=== PATIENT | female | born 1955 | race Caucasian/White ===

== ENCOUNTER 2025-06-10 07:34 | Emergency (ER) | payer OTHER, SELFPAY ==
--- NOTE | ~2025-06-10 | XR_ITS ---
EXAMINATION: XR chest 1V portable 06/10/2025 08:20 INDICATION: Chest palpitations PROCEDURE: AP portable chest COMPARISON: No prior studies for comparison. FINDINGS: The lungs are clear. The cardiomediastinal silhouette is within normal limits. There are no pleural effusions. There is no pneumothorax suspected. IMPRESSION: 1: NO ACUTE CARDIOPULMONARY DISEASE. Reviewed, dictated and finalized at location O.
[2025-06-10 07:43] VITALS: BP 148/68; PULSE 88; RESP 20; TEMP 36.7; O2SAT 97
[2025-06-10 07:58] VITALS: BP 156/82; PULSE 79; RESP 14; O2SAT 98
--- NOTE | 2025-06-10 07:59 | ED_ITS ---
HPI - General Adult General Chief complaint: Anxiety Stated complaint: panic attack, stress Time Seen by Provider: 06/10/25 07:40 History of Present Illness HPI narrative: 69-year-old female presenting to the emergency department for evaluation for increased anxiety. Patient states he does have some history of anxiety but feels that has been worse over the last few days. Patient does have a pending tripped that will take approximately 2 weeks. Patient states this has been causing her to have increased stress. Patient states that yesterday she did take a family members anxiety pill, patient is unsure what the pill actually was, and patient states that she did feel improved for a period afterwards. Patient reports last night she had worsening sleep and this morning she had sensation of heart palpitations hyperventilation and numbness to fingers. Patient states this has since resolved. Patient does appear anxious appearing but is in no distress at time of evaluation. Patient does have history of type 2 diabetes. Related Data Allergies Allergy/AdvReac Type Severity Reaction Status Date / Time amoxicillin (From Amoxil) Allergy Hives Verified 06/10/25 07:43 Review of Systems 2 Review of Systems: All systems reviewed & are unremarkable except as noted in HPI and below Exam 2 Narrative: APPEARANCE: Well appearing, no pain, no distress, well-nourished. HEAD: normocephalic, atraumatic. EYES: PERRLA/EOMI, conjunctivae clear. NOSE: Normal no drainage EARS:TMS clear with good light reflex. THROAT: Pharynx clear, no exudate. NECK: Supple. No adenopathy, no masses. RESPIRATORY: Airway patent, respirations nonlabored. Clear to auscultation bilaterally, no rales, rhonchi, wheezing. CARDIOVASCULAR: Regular rate and rhythm without murmurs rubs or gallops. ABDOMINAL: Soft, nontender, nondistended, normal bowel sounds MUSCULOSKELETAL: Moves all extremities. Strength/ROM intact, No edema, No calf tenderness. NEURO: Alert. Cranial nerves II through XII intact. Good gait. Good coordination SKIN: Warm, dry. Normal Color Course Vital Signs Vital signs: Vital Signs Temperature 98.1 F 06/10/25 07:43 Pulse Rate 88 06/10/25 07:43 Respiratory Rate 20 06/10/25 07:43 Blood Pressure 148/68 H 06/10/25 07:43 Pulse Oximetry 97 06/10/25 07:43 Oxygen Delivery Room Air 06/10/25 07:43 Temperature 98.1 F 06/10/25 07:43 Pulse Rate 84 06/10/25 09:33 Respiratory Rate 15 06/10/25 09:33 Blood Pressure 147/75 H 06/10/25 09:33 Pulse Oximetry 100 06/10/25 09:33 Oxygen Delivery Room Air 06/10/25 07:43 Medical Decision Making MDM Narrative Medical decision making narrative: 69-year-old female presenting to the emergency department for evaluation for anxiety. Patient is currently afebrile with no leukocytosis hemoglobin 12.9. Patient has INR 1.1. Patient has no acute abnormalities other CMP. Chest x-ray shows no acute cardiopulmonary abnormality. EKG shows normal sinus rhythm. Patient was treated with 1 mg of p.o. Ativan and patient does feel significantly improved. Patient will be provided a short course of Ativan for her vacation and patient will have close follow-up with primary care physician when she returns. Differential Diagnosis Differential Diagnosis: Anxiety, electrolyte abnormality, TIA, CVA Vital Signs Vital Signs: Vital Signs Temperature 98.1 F 06/10/25 07:43 Pulse Rate 88 06/10/25 07:43 Respiratory Rate 20 06/10/25 07:43 Blood Pressure 148/68 H 06/10/25 07:43 Pulse Oximetry 97 06/10/25 07:43 Oxygen Delivery Room Air 06/10/25 07:43 Temperature 98.1 F 06/10/25 07:43 Pulse Rate 84 06/10/25 09:33 Respiratory Rate 15 06/10/25 09:33 Blood Pressure 147/75 H 06/10/25 09:33 Pulse Oximetry 100 06/10/25 09:33 Oxygen Delivery Room Air 06/10/25 07:43 Lab Data Lab results reviewed: Yes I reviewed the patient's lab results. 06/10/25 08:10 06/10/25 08:10 Labs: Lab Results 06/10/25 Range/Units 08:10 WBC 4.9 (4.5-10.0) K/mm3 RBC 4.37 (4.2-5.4) M/mm3 Hgb 12.9 (12.0-15.0) g/dL Hct 37.0 (37.0-47.0) % MCV 84.7 (80-100) fl MCH 29.5 (26-34) pg MCHC 34.9 (32-36) g/dl RDW 12.4 (11.5-14.5) % Plt Count 167 (150-375) k/mm3 MPV 9.6 (7.4-10.4) fl Immature Gran % (Auto) 0.4 (0-0.5) % Neut % (Auto) 63.0 (45.5-73.1) % Lymph % (Auto) 28.2 (18.3-44.2) % Hickman % (Auto) 6.6 (2.6-8.5) % Eos % (Auto) 1.0 (0-4.4) % Baso % (Auto) 0.8 (0.2-1.2) % Lymph # (Auto) 1.37 (0.9-3.2) K/mm3 Hickman # (Auto) 0.3 (0.1-0.6) K/mm3 Eos # (Auto) 0.1 (0-0.3) K/mm3 Baso # (Auto) 0.0 (0.0-0.1) K/mm3 Abs Immat Gran (auto) 0.02 (0.00-0.031) K/mm3 Absolute Neuts (auto) 3.1 (1.3-6.7) K/mm3 Absolute Nucleated RBC 0.000 (0.0-0.012) K/mm3 Nucleated RBC % 0.0 (0.0-0.2) % PT 14.6 (11.1-14.7) Seconds INR 1.1 APTT 24.9 (22.3-36.8) Seconds Sodium 136 L (137-145) mmol/L Potassium 3.8 (3.4-5.0) mmol/L Chloride 105 (98-107) mmol/L Carbon Dioxide 23 (22-30) mmol/L Anion Gap 8 (4-12) mmol/L BUN 14 (7-17) mg/dL Creatinine 0.61 L (0.7-1.0) mg/dL Estim Creat Clear Calc 67 ml/min Estimated GFR > 60 (59 - ) Glucose 188 H (65-110) mg/dL Calcium 9.0 (8.4-10.2) mg/dL Magnesium 1.9 (1.6-2.3) mg/dL Total Bilirubin 1.7 H (0.2-1.3) mg/dL AST 28 (14-36) U/L ALT 20 (6-35) U/L Alkaline Phosphatase 72 (38-126) U/L Total Protein 7.1 (6.3-8.2) g/dL Albumin 4.4 (3.5-5.1) g/dL TSH (Reflex) 2.330 (0.465-4.68) uIU/mL Imaging Data Radiologist's impression: Impressions Chest X-Ray 06/10/25 08:20 IMPRESSION: 1: NO ACUTE CARDIOPULMONARY DISEASE. Discharge Plan Discharge Clinical Impression: Acute anxiety Patient Disposition: Home Condition: Stable Instructions: Antibiotic Form, Anxiety (ED) Additional Instructions: Ativan as needed for anxiety control as needed. Have close follow-up with your primary care physician. Patient Language: Qatari Prescriptions: New lorazepam [Ativan] 1 mg tablet 1 mg PO BID PRN (Reason: anxiety) Qty: 14 0RF Follow-up/Referrals: PHYSICIAN NOT ON STAFF,NONSTAFF [Primary Care Provider]
[2025-06-10] MEDS: LORazepam (*CRX) 1 MG TABLET PO (08:13)
[2025-06-10] MEDS: LACTATED RINGERS 1,000 ML 999 ML IV CONT (08:13)
[2025-06-10 08:17] LABS: Hematocrit 37.0 % (37.0-47.0); Hemoglobin 12.9 g/dL (12.0-15.0); Immature Granulocyte Percent A 0.4 % (0-0.5); Lymphocytes Absolute Auto 1.37 K/mm3 (0.9-3.2); Mean Corpuscular HGB Conc 34.9 g/dl (32-36); Mean Corpuscular Hemoglobin 29.5 pg (26-34); Mean Corpuscular Volume 84.7 fl (80-100); Nucleated Red Blood Cells Absolute Auto 0.000 K/mm3 (0.0-0.012); Nucleated Red Blood Cells Perc 0.0 % (0.0-0.2); Platelet Count Result 167 k/mm3 (150-375); Red Blood Count 4.37 M/mm3 (4.2-5.4); White Blood Count 4.9 K/mm3 (4.5-10.0)
[2025-06-10 08:30] LABS: Alanine Aminotransferase 20 U/L (6-35); Albumin Level 4.4 g/dL (3.5-5.1); Alkaline Phosphatase 72 U/L (38-126); Anion Gap 8 mmol/L (4-12); Aspartate Amino Transferase 28 U/L (14-36); Bilirubin,Total 1.7 mg/dL (0.2-1.3); Blood Urea Nitrogen 14 mg/dL (7-17); Calcium 9.0 mg/dL (8.4-10.2); Carbon Dioxide 23 mmol/L (22-30); Chloride 105 mmol/L (98-107); Estimated CRCL calculation 67 ml/min; Estimated Glomerular Filt Rate > 60; Glucose 188 mg/dL (65-110); Magnesium 1.9 mg/dL (1.6-2.3); Potassium 3.8 mmol/L (3.4-5.0); Sodium 136 mmol/L (137-145); Total Protein 7.1 g/dL (6.3-8.2)
[2025-06-10 08:33] LABS: INR 1.1; Prothrombin Time 14.6 Seconds (11.1-14.7)
[2025-06-10 08:34] LABS: Partial Thromboplastin Time 24.9 Seconds (22.3-36.8)
[2025-06-10 09:33] VITALS: BP 147/75; PULSE 84; RESP 15; O2SAT 100
[2025-06-10 10:12] LABS: Thyroid Stimulating Hormone Reflex 2.330 uIU/mL (0.465-4.68)
== END 2025-06-10 09:34 | disposition home or self-care (01) ==
PROVIDERS: Emergency Provider Emergency Medicine
DX: F41.9 Anxiety disorder, unspecified (principal); E11.9 Type 2 diabetes mellitus without complications
CPT/HCPCS: 36415; 71045; 80053; 83735; 84443; 85025; 85610; 85730; 96360; 99283; A9270; J7120